=== PATIENT | female | born 1955 | race Caucasian/White ===

== ENCOUNTER 2021-04-08 19:32 | Emergency (ER) | payer SELFPAY ==
[~2021-04-08] VITALS: Ht 170.2 cm; Wt 52.2 kg
[~2021-04-08 19:32] MED LIST: DICY10CA12 PO; GABA300C10 PO; POTA-180 PO
[2021-04-09] MEDS ORDERED: HYDROmorphone HCL 2 MG/ML VL IM ONE (00:15)
[2021-04-09 00:20] VITALS: BP 124/66
== END 2021-04-09 00:22 | disposition home or self-care (01) ==
LOC: ER 19:35
DX: S32.501A Unspecified fracture of right pubis, initial encounter for closed fracture (principal); W01.0XXA Fall on same level from slipping, tripping and stumbling without subsequent striking against object, initial encounter; Y93.89 Activity, other specified; Y92.89 Other specified places as the place of occurrence of the external cause; Y99.8 Other external cause status
CPT/HCPCS: 72192; 96372; 99284; J1170